=== PATIENT | male | born 1960 | race Caucasian/White ===

== ENCOUNTER 2019-02-03 18:46 | Emergency (ER) | payer OTHER ==
[~2019-02-03] VITALS: Wt 81.6 kg
--- NOTE | ~2019-02-03 | EKG ---
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
[~2019-02-03 18:46] MED LIST: AMOXICILLIN500 MG PO; CLINDAMYCIN HC300 MG PO; LISINOPRIL5 MG PO; MOTRIN800 MG PO; TRAMADOL HCL50 MG PO; VIBRAMYCIN100 MG PO
[2019-02-03 18:59] LABS: BASO # 0.1 10*3/uL (0.0-0.1); BASO % 0.6 % (0.0-1.0); EOS # 0.3 10*3/uL (0.0-0.4); EOS % 3.1 % (1.0-4.0); HEMOGLOBIN 15.4 g/dl (14.0-18.0); LYMPH # 1.7 10*3/uL (1.3-4.4); LYMPH % 18.6 % (27.0-41.0); MEAN CELL VOLUME 98.4 fl (80.0-94.0); MEAN CORPUSCULAR HGB 34.5 pg (27.0-31.0); MONO # 1.1 10*3/uL (0.1-1.0); MONO % 12.6 % (3.0-9.0); NEUT # 5.9 10*3/uL (2.3-7.9); NEUT % 64.8 % (47.0-73.0); PLATELET COUNT AUTOMATED 235 10*3/uL (130-400); RED BLOOD COUNT 4.47 10*6/uL (4.50-5.90); RED CELL DISTRI WIDTH 12.5 % (0-14.5)
[2019-02-03 19:10] LABS: ACT PARTIAL THROMBO TIME 28.2 SECONDS (20.0-32.1); INTERNATIONAL NORM RATIO 0.9 (2.0-3.5)
[2019-02-03 19:16] LABS: ALBUMIN 3.7 gm/dl (3.1-4.5); ALKALINE PHOSPHATASE 136 U/L (45-117); BUN 12 mg/dl (7-24); CHLORIDE 103 mmol/L (98-107); CREATININE 0.99 mg/dL (0.70-1.30); POTASSIUM 4.1 mmol/L (3.5-5.1); SGOT/AST 33 IU/L (3-35); SGPT/ALT 34 U/L (12-78); SODIUM 134 mmol/L (136-145); TOTAL PROTEIN 7.3 gm/dL (6.4-8.2)
[2019-02-03 19:17] LABS: TROPONIN I < 0.015 ng/ml (<0.045)
[2019-02-03] MEDS ORDERED: VIBRAMYCIN100 MG PO (20:30)
[2019-02-03] MEDS ORDERED: Motrin,Rufen800 MG PO (20:30)
== END 2019-02-03 20:45 | disposition home or self-care (01) ==
LOC: ED 18:46
PROVIDERS: Emergency Medicine
DX: J45.909 Unspecified asthma, uncomplicated (principal); R07.81 Pleurodynia; F17.200 Nicotine dependence, unspecified, uncomplicated; Z88.4 Allergy status to anesthetic agent; Z88.0 Allergy status to penicillin; Z79.899 Other long term (current) drug therapy; Z90.49 Acquired absence of other specified parts of digestive tract

== ENCOUNTER 2019-03-16 13:57 | Inpatient (IN) | payer OTHER ==
[~2019-03-16] VITALS: Ht 182.8 cm; Wt 79.4 kg
[~2019-03-16 13:57] MED LIST changes: +Motrin,Rufen800 MG PO
[2019-03-16 13:58] VITALS: BP 176/102
--- NOTE | 2019-03-16 14:14 | NUR ---
MEDS PER MEGAN HERNANDEZ
[2019-03-16 15:02] LABS: BASO % 0.1 % (0.0-1.0); EOS # 0.1 10*3/uL (0.0-0.4); EOS % 0.9 % (1.0-4.0); HEMATOCRIT 37.6 % (42.0-52.0); HEMOGLOBIN 13.4 g/dl (14.0-18.0); LYMPH # 0.7 10*3/uL (1.3-4.4); LYMPH % 9.9 % (27.0-41.0); MEAN CELL VOLUME 99.5 fl (80.0-94.0); MEAN CORPUSCULAR HGB 35.4 pg (27.0-31.0); MEAN CORPUSCULAR HGB CONC 35.6 g/dl (33.0-37.0); MEAN PLATELET VOLUME 9.2 fl (9.6-12.3); MONO # 0.6 10*3/uL (0.1-1.0); MONO % 8.7 % (3.0-9.0); NEUT # 5.5 10*3/uL (2.3-7.9); NEUT % 80.1 % (47.0-73.0); PLATELET COUNT AUTOMATED 166 10*3/uL (130-400); RED BLOOD COUNT 3.78 10*6/uL (4.50-5.90); RED CELL DISTRI WIDTH 12.4 % (0-14.5); WHITE BLOOD COUNT 6.9 10*3/uL (4.8-10.8)
[2019-03-16 15:11] LABS: ACT PARTIAL THROMBO TIME 28.6 SECONDS (20.0-32.1); INTERNATIONAL NORM RATIO 0.9 (2.0-3.5)
[2019-03-16 15:20] LABS: ALBUMIN 3.4 gm/dl (3.1-4.5); ALKALINE PHOSPHATASE 170 U/L (45-117); BUN 8 mg/dl (7-24); CHLORIDE 96 mmol/L (98-107); CREATININE 0.96 mg/dL (0.70-1.30); LIPASE 228 U/L (73-393); POTASSIUM 3.1 mmol/L (3.5-5.1); SGOT/AST 68 IU/L (3-35); SGPT/ALT 51 U/L (12-78); SODIUM 133 mmol/L (136-145); TOTAL PROTEIN 6.4 gm/dL (6.4-8.2)
[2019-03-16 15:21] LABS: TROPONIN I < 0.015 ng/ml (<0.045)
[2019-03-16] MEDS ORDERED: LISINOPRIL20 MG PO (15:51)
[2019-03-16 15:57] LABS: BILIRUBIN NEGATIVE (NEGATIVE); BLOOD NEGATIVE (NEGATIVE); CLARITY CLEAR (CLEAR); COLOR YELLOW (YELLOW); GLUCOSE NEGATIVE (NEGATIVE); KETONE NEGATIVE (NEGATIVE); LEUKO ESTERASE NEGATIVE (NEGATIVE); NITRITE NEGATIVE (NEGATIVE); PH 8.5 (5.0-9.0); UROBILINOGEN 0.2 E.U./dl (0.2-1.0)
--- NOTE | 2019-03-17 03:13 | NUR ---
REPORT TO CANDIS AVILES RN
[2019-03-17 03:46] VITALS: BP 138/71
--- NOTE | 2019-03-17 03:46 | NUR ---
PT REPORT OBTAINED AT 0300.
--- NOTE | 2019-03-17 03:47 | NUR ---
PT RESTING QUIETLY, NO DISTRESS NOTED, PT DENIES ANY CHEST PAIN OR SOB. CALL LIGHT INB REACH WILL MONITOR.
[2019-03-17 08:00] VITALS: BP 175/97
--- NOTE | 2019-03-17 08:00 | NUR ---
A 58, admitted to , under the services of DION Martinez MD with a diagnosis of DIZZINESS, HYPOKALEMIA. Chief complaint is VOMITED AND DIZZINESS YESTERDAY. Patient arrived via stretcher from ER. Monitor applied. Initial assessment completed. Vital signs taken and recorded. DION MARTINEZ MD notified of admission to the unit. Orders received. See assessment for past medical history, medications and allergies. Patient and/or family oriented to unit. [facility]. Clothing/patient valuable form completed. CLEMENCIA RIVAS
[2019-03-17 12:00] VITALS: BP 161/92
[2019-03-17] MEDS ORDERED: ALEVE220 M1 PO (14:33)
[2019-03-17 16:00] VITALS: BP 168/102
--- NOTE | 2019-03-17 16:17 | NUR ---
PT MEDICATED WITH ALEVE PO FOR C/O HEADACHE. STATES ALEVE IS WHAT HE TAKES AT HOME.
[2019-03-17 20:00] VITALS: BP 165/98; BP 168/100
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
[2019-03-18] VITALS: BP 155/106; BP 158/94; BP 172/102
--- NOTE | 2019-03-18 01:46 | NUR ---
NOTIFIED DR. HOFF OF PATIENTS BLOOD PRESSURE BEING 172/102. ORDER RECCIEVED FOR NORVASC 10MG PO NOW
[2019-03-18 04:00] VITALS: BP 152/88
[2019-03-18 07:49] LABS: BASO % 0.3 % (0.0-1.0); EOS # 0.2 10*3/uL (0.0-0.4); EOS % 3.9 % (1.0-4.0); HEMATOCRIT 43.3 % (42.0-52.0); LYMPH % 17.5 % (27.0-41.0); MEAN CORPUSCULAR HGB 35.1 pg (27.0-31.0); MEAN CORPUSCULAR HGB CONC 34.6 g/dl (33.0-37.0); MEAN PLATELET VOLUME 9.6 fl (9.6-12.3); MONO # 0.6 10*3/uL (0.1-1.0); MONO % 10.8 % (3.0-9.0); NEUT % 67.2 % (47.0-73.0); PLATELET COUNT AUTOMATED 174 10*3/uL (130-400); RED BLOOD COUNT 4.27 10*6/uL (4.50-5.90); RED CELL DISTRI WIDTH 12.5 % (0-14.5); WHITE BLOOD COUNT 5.9 10*3/uL (4.8-10.8)
[2019-03-18 07:52] LABS: MEAN CELL VOLUME 101.4 fl (80.0-94.0)
[2019-03-18 08:00] VITALS: BP 150/84
[2019-03-18] MEDS ORDERED: ZOCOR10 MG PO (08:08)
[2019-03-18] MEDS ORDERED: PROTONIX40 MG PO (08:08)
[2019-03-18 08:10] LABS: BUN 9 mg/dl (7-24); CHLORIDE 106 mmol/L (98-107); CHOLESTEROL 167 mg/dL (<200); CREATININE 0.86 mg/dL (0.70-1.30); HDL CHOLESTEROL 118 mg/dl (40-60); LDL CHOLESTEROL 38 mg/dL (9-159); TRIGLYCERIDES 53 mg/dl (<150); VLDL CHOLESTEROL 11 mg/dL (6-40)
[2019-03-18 08:14] LABS: SODIUM 137 mmol/L (136-145)
[2019-03-18 08:15] LABS: POTASSIUM 4.1 mmol/L (3.5-5.1)
--- NOTE | 2019-03-18 11:00 | NUR ---
Discharge instructions reviewed with patient/family. Patient receptive and verbalizes understanding. Follow-up care arranged. Written instructions given to patient/family. CLEMENCIA RIVAS
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
[2019-03-19 08:09] LABS: HEPATITIS B SURFACE AG Negative (Negative); HEPATITIS C VIRUS ANTIBODY <0.1 s/co (0.0-0.9)
== END 2019-03-18 11:06 | disposition home or self-care (01) | DRG 392 ==
LOC: ED 13:57 → EDHOLD 15:45 → 4E 03-17 07:08
PROVIDERS: Nurse Practitioner Family; ADMIT Internal Medicine
DX: K29.20 Alcoholic gastritis without bleeding (principal); E87.1 Hypo-osmolality and hyponatremia; K44.9 Diaphragmatic hernia without obstruction or gangrene; G40.909 Epilepsy, unspecified, not intractable, without status epilepticus; E87.6 Hypokalemia; R74.0 Nonspecific elevation of levels of transaminase and lactic acid dehydrogenase [LDH]; G89.29 Other chronic pain; I10 Essential (primary) hypertension; F17.210 Nicotine dependence, cigarettes, uncomplicated; I25.10 Atherosclerotic heart disease of native coronary artery without angina pectoris; K70.9 Alcoholic liver disease, unspecified; F10.10 Alcohol abuse, uncomplicated; Z88.0 Allergy status to penicillin; Z81.8 Family history of other mental and behavioral disorders; Z88.2 Allergy status to sulfonamides

== ENCOUNTER 2019-06-06 00:11 | Emergency (ER) | payer OTHER ==
[~2019-06-06] VITALS: Wt 81.6 kg
[~2019-06-06 00:11] MED LIST changes: +ALEVE220 M1 PO; +LISINOPRIL20 MG PO; +PROTONIX40 MG PO; +ZOCOR10 MG PO
== END 2019-06-06 01:24 | disposition home or self-care (01) ==
LOC: ED 00:11
DX: S60.022A Contusion of left index finger without damage to nail, initial encounter (principal); J45.909 Unspecified asthma, uncomplicated; F17.200 Nicotine dependence, unspecified, uncomplicated; Z88.0 Allergy status to penicillin; Z88.2 Allergy status to sulfonamides; Z88.4 Allergy status to anesthetic agent; Z79.899 Other long term (current) drug therapy; Z90.49 Acquired absence of other specified parts of digestive tract; W23.0XXA Caught, crushed, jammed, or pinched between moving objects, initial encounter; Y93.89 Activity, other specified; Y92.89 Other specified places as the place of occurrence of the external cause; Y99.8 Other external cause status

== ENCOUNTER → 2020-11-03 | Outpatient (CLI) | payer OTHER ==
[2020-11-03 09:50] LABS: BASO % 0.7 % (0.0-1.0); EOS # 0.4 10*3/uL (0.0-0.4); EOS % 6.9 % (1.0-4.0); HEMATOCRIT 43.3 % (42.0-52.0); LYMPH # 0.9 10*3/uL (1.3-4.4); LYMPH % 16.5 % (27.0-41.0); MEAN CELL VOLUME 104.8 fl (80.0-94.0); MEAN CORPUSCULAR HGB 35.6 pg (27.0-31.0); MEAN CORPUSCULAR HGB CONC 33.9 g/dl (33.0-37.0); MEAN PLATELET VOLUME 9.2 fl (9.6-12.3); MONO # 0.5 10*3/uL (0.1-1.0); MONO % 9.5 % (3.0-9.0); NEUT # 3.8 10*3/uL (2.3-7.9); PLATELET COUNT AUTOMATED 176 10*3/uL (130-400); RED BLOOD COUNT 4.13 10*6/uL (4.50-5.90); RED CELL DISTRI WIDTH 13.1 % (0-14.5); WHITE BLOOD COUNT 5.7 10*3/uL (4.8-10.8)
[2020-11-03 10:09] LABS: ALBUMIN 3.1 gm/dl (3.1-4.5); BUN 12 mg/dl (7-24); CHLORIDE 102 mmol/L (98-107); FREE T4 0.76 ng/dl (0.76-1.46); POTASSIUM 4.8 mmol/L (3.5-5.1); SODIUM 135 mmol/L (136-145)
[2020-11-03 10:17] LABS: ALKALINE PHOSPHATASE 121 U/L (45-117); CHOLESTEROL 154 mg/dL (<200); CREATININE 0.83 mg/dL (0.70-1.30); LDL CHOLESTEROL 97 mg/dL (9-159); SGOT/AST 36 IU/L (3-35); SGPT/ALT 32 U/L (12-78); TOTAL PROTEIN 7.2 gm/dL (6.4-8.2); TRIGLYCERIDES 66 mg/dl (<150)
[2020-11-03 11:45] LABS: VITAMIN D, 25-HYDROXY 15.8 ng/mL (30-100)
== END | disposition home or self-care (01) ==
LOC: LAB 08:53
PROVIDERS: ATTEND Internal Medicine
DX: R00.0 Tachycardia, unspecified (principal); M25.862 Other specified joint disorders, left knee; M25.861 Other specified joint disorders, right knee; E55.9 Vitamin D deficiency, unspecified; I10 Essential (primary) hypertension

== ENCOUNTER → 2020-11-19 | Outpatient (CLI) | payer OTHER | END | disposition home or self-care (01) | LOC: COVID19 14:04 | PROVIDERS: ATTEND Surgery | DX: Z01.812 Encounter for preprocedural laboratory examination (principal); Z20.822 Contact with and (suspected) exposure to COVID-19 ==

== ENCOUNTER → 2020-11-23 | Day surgery (SDC) | payer OTHER ==
[2020-11-19 14:37] VITALS: BP 150/83
[~2020-11-23] VITALS: Ht 231.1 cm; Wt 86.2 kg
[~2020-11-23] MED LIST changes: +COLACE100 MG PO; +PERCOCET 5-3251 EACH PO; +ZOFRAN4 MG PO
[2020-11-23 09:36] VITALS: BP 168/97
[2020-11-23 12:12] VITALS: BP 194/113
[2020-11-23 12:30] VITALS: BP 175/101
[2020-11-23 12:45] VITALS: BP 187/95
[2020-11-23 13:00] VITALS: BP 174/98
[2020-11-23 13:15] VITALS: BP 171/84
== END | disposition home or self-care (01) ==
LOC: SDC 11-19 14:00
PROVIDERS: ATTEND Surgery
DX: K40.30 Unilateral inguinal hernia, with obstruction, without gangrene, not specified as recurrent (principal); J45.909 Unspecified asthma, uncomplicated; I10 Essential (primary) hypertension; I25.10 Atherosclerotic heart disease of native coronary artery without angina pectoris; F17.210 Nicotine dependence, cigarettes, uncomplicated; Z79.899 Other long term (current) drug therapy; Z53.31 Laparoscopic surgical procedure converted to open procedure

== ENCOUNTER 2021-03-24 10:07 | Inpatient (IN) | payer OTHER ==
[~2021-03-24] VITALS: Ht 182.8 cm; Wt 95.1 kg
[2021-03-24 10:18] VITALS: BP 119/68
[2021-03-24 10:50] LABS: HEMATOCRIT 26.9 % (42.0-52.0); MEAN CELL VOLUME 111.6 fl (80.0-94.0); MEAN CORPUSCULAR HGB 37.8 pg (27.0-31.0); MEAN CORPUSCULAR HGB CONC 33.8 g/dl (33.0-37.0); MEAN PLATELET VOLUME 9.1 fl (9.6-12.3); PLATELET COUNT AUTOMATED 243 10*3/uL (130-400); RED BLOOD COUNT 2.41 10*6/uL (4.50-5.90); RED CELL DISTRI WIDTH 14.4 % (0-14.5); WHITE BLOOD COUNT 5.3 10*3/uL (4.8-10.8)
[2021-03-24 11:15] LABS: ALBUMIN 1.8 gm/dl (3.1-4.5); ALKALINE PHOSPHATASE 146 U/L (45-117); BUN 5 mg/dl (7-24); CHLORIDE 94 mmol/L (98-107); CREATININE 0.72 mg/dL (0.70-1.30); LIPASE 146 U/L (73-393); POTASSIUM 3.6 mmol/L (3.5-5.1); SGOT/AST 70 IU/L (3-35); SGPT/ALT 35 U/L (12-78); SODIUM 130 mmol/L (136-145)
[2021-03-24 11:19] LABS: ATYPICAL LYMPHS 2 % (0-0); PLATELET SUFFICIENCY NORMAL (NORMAL); TOTAL CELLS COUNTED 100 #CELLS
[2021-03-24 11:26] LABS: TROPONIN I < 0.015 ng/ml (<0.045)
[2021-03-24 17:49] LABS: THYROID STIM HORMONE (HS) 1.51 uIU/ml (0.358-4.75)
[2021-03-24 20:00] VITALS: BP 118/76
[2021-03-25] VITALS: BP 123/74
[2021-03-25 03:41] VITALS: BP 123/74
[2021-03-25 04:21] VITALS: BP 113/70
[2021-03-25 07:14] LABS: HEMATOCRIT 24.8 % (42.0-52.0); MEAN CELL VOLUME 112.7 fl (80.0-94.0); MEAN CORPUSCULAR HGB 37.3 pg (27.0-31.0); MEAN CORPUSCULAR HGB CONC 33.1 g/dl (33.0-37.0); MEAN PLATELET VOLUME 9.3 fl (9.6-12.3); PLATELET COUNT AUTOMATED 237 10*3/uL (130-400); RED CELL DISTRI WIDTH 14.6 % (0-14.5); WHITE BLOOD COUNT 4.8 10*3/uL (4.8-10.8)
[2021-03-25 07:29] LABS: ALBUMIN 1.7 gm/dl (3.1-4.5); ALKALINE PHOSPHATASE 119 U/L (45-117); BUN 4 mg/dl (7-24); CHLORIDE 97 mmol/L (98-107); POTASSIUM 3.5 mmol/L (3.5-5.1); SGOT/AST 46 IU/L (3-35); SGPT/ALT 28 U/L (12-78); SODIUM 132 mmol/L (136-145); TOTAL PROTEIN 5.5 gm/dL (6.4-8.2)
[2021-03-25 08:17] LABS: TOTAL CELLS COUNTED 100 #CELLS
[2021-03-25 08:18] LABS: PLATELET SUFFICIENCY NORMAL (NORMAL)
[2021-03-25 13:49] VITALS: BP 137/82
[2021-03-25 16:00] VITALS: BP 139/83
[2021-03-25] MEDS ORDERED: Percocet 325 MG1 TAB PO (16:27)
[2021-03-25 16:55] LABS: BILIRUBIN Negative (Negative); BLOOD Negative (Negative); CLARITY Clear (Clear); COLOR Dark Yellow (Yellow); GLUCOSE Negative (Negative); KETONE Negative (Negative); LEUKO ESTERASE Negative (Negative); NITRITE Negative (Negative); SPECIFIC GRAVITY 1.015 (1.001-1.030)
[2021-03-25 17:01] LABS: INTERNATIONAL NORM RATIO 1.1 (2.0-3.5)
[2021-03-25] MEDS ORDERED: GABAPENTIN600 MG PO (17:07)
[2021-03-25] MEDS ORDERED: NATURE'S BLEND F1 MG PO (17:07)
[2021-03-25 17:23] LABS: BACTERIA TRACE; EPITHELIAL CELLS 0-2; RBC 0-2 rbc/hpf (0-2)
[2021-03-25 20:00] VITALS: BP 145/76
[2021-03-26] VITALS (10 sets, daily range): BP systolic 123–152; BP diastolic 68–88
[2021-03-26 06:27] LABS: HEMATOCRIT 24.5 % (42.0-52.0); MEAN CELL VOLUME 112.4 fl (80.0-94.0); MEAN CORPUSCULAR HGB 37.6 pg (27.0-31.0); MEAN CORPUSCULAR HGB CONC 33.5 g/dl (33.0-37.0); MEAN PLATELET VOLUME 9.1 fl (9.6-12.3); PLATELET COUNT AUTOMATED 230 10*3/uL (130-400); RED BLOOD COUNT 2.18 10*6/uL (4.50-5.90); RED CELL DISTRI WIDTH 14.2 % (0-14.5); WHITE BLOOD COUNT 5.1 10*3/uL (4.8-10.8)
[2021-03-26 06:32] LABS: ALBUMIN 2.1 gm/dl (3.1-4.5); ALKALINE PHOSPHATASE 105 U/L (45-117); BUN 4 mg/dl (7-24); CHLORIDE 102 mmol/L (98-107); POTASSIUM 3.5 mmol/L (3.5-5.1); SGOT/AST 38 IU/L (3-35); SGPT/ALT 23 U/L (12-78); SODIUM 135 mmol/L (136-145); TOTAL PROTEIN 5.7 gm/dL (6.4-8.2); VANCOMYCIN TROUGH 16.6 ug/mL (10-20)
[2021-03-26 07:37] LABS: BASOPHILS 1 % (0-1); PLATELET SUFFICIENCY NORMAL (NORMAL); TOTAL CELLS COUNTED 100 #CELLS
[2021-03-26 10:07] LABS: CREATININE,URINE 85.1 mg/dL (Not Estab.); MICRO ALBUMIN/CRE RATIO <4 (0-29)
[2021-03-27] VITALS: BP 145/90
[2021-03-27 04:00] VITALS: BP 145/90
[2021-03-27 07:14] LABS: MEAN CELL VOLUME 112.6 fl (80.0-94.0); MEAN CORPUSCULAR HGB 36.5 pg (27.0-31.0); MEAN CORPUSCULAR HGB CONC 32.4 g/dl (33.0-37.0); MEAN PLATELET VOLUME 9.1 fl (9.6-12.3); PLATELET COUNT AUTOMATED 230 10*3/uL (130-400); RED BLOOD COUNT 2.22 10*6/uL (4.50-5.90); RED CELL DISTRI WIDTH 14.2 % (0-14.5); WHITE BLOOD COUNT 5.5 10*3/uL (4.8-10.8)
[2021-03-27 07:32] LABS: ALBUMIN 2.2 gm/dl (3.1-4.5); ALKALINE PHOSPHATASE 96 U/L (45-117); BUN 6 mg/dl (7-24); CHLORIDE 103 mmol/L (98-107); CREATININE 0.47 mg/dL (0.70-1.30); POTASSIUM 3.5 mmol/L (3.5-5.1); SGOT/AST 37 IU/L (3-35); SGPT/ALT 25 U/L (12-78); SODIUM 135 mmol/L (136-145); TOTAL PROTEIN 5.3 gm/dL (6.4-8.2)
[2021-03-27 08:00] VITALS: BP 122/69
[2021-03-27 08:34] LABS: PLATELET SUFFICIENCY NORMAL (NORMAL); TOTAL CELLS COUNTED 100 #CELLS
[2021-03-27 11:07] LABS: ACID FAST SPEC PROCESSING Tissue Grinding (.)
[2021-03-27 12:00] VITALS: BP 128/79
[2021-03-27 16:00] VITALS: BP 151/89
[2021-03-27 20:00] VITALS: BP 134/76
[2021-03-28] VITALS: BP 147/89
[2021-03-28 06:56] LABS: RETICULOCYTE % 6.17 % (0.50-2.50)
[2021-03-28 08:00] VITALS: BP 144/88
[2021-03-28 12:00] VITALS: BP 155/87
[2021-03-28 12:06] LABS: ACID FAST SPEC PROCESSING Tissue Grinding (.)
[2021-03-28 16:00] VITALS: BP 148/94
[2021-03-28 20:00] VITALS: BP 151/93
[2021-03-29] VITALS: BP 157/86
[2021-03-29 09:00] VITALS: BP 147/84
[2021-03-29 11:12] LABS: HEMATOCRIT 25.1 % (42.0-52.0); MEAN CELL VOLUME 114.1 fl (80.0-94.0); MEAN CORPUSCULAR HGB 37.3 pg (27.0-31.0); MEAN CORPUSCULAR HGB CONC 32.7 g/dl (33.0-37.0); MEAN PLATELET VOLUME 8.7 fl (9.6-12.3); PLATELET COUNT AUTOMATED 199 10*3/uL (130-400); RED CELL DISTRI WIDTH 13.9 % (0-14.5); WHITE BLOOD COUNT 5.7 10*3/uL (4.8-10.8)
[2021-03-29 11:27] LABS: ALBUMIN 3.1 gm/dl (3.1-4.5); ALKALINE PHOSPHATASE 84 U/L (45-117); BUN 6 mg/dl (7-24); CHLORIDE 102 mmol/L (98-107); CREATININE 0.73 mg/dL (0.70-1.30); POTASSIUM 3.4 mmol/L (3.5-5.1); SGOT/AST 34 IU/L (3-35); SGPT/ALT 25 U/L (12-78); SODIUM 136 mmol/L (136-145); TOTAL PROTEIN 6.5 gm/dL (6.4-8.2)
[2021-03-29 11:45] LABS: PLATELET SUFFICIENCY NORMAL (NORMAL); TOTAL CELLS COUNTED 100 #CELLS
[2021-03-29 12:00] VITALS: BP 136/85
[2021-03-29 12:06] LABS: TOTAL PROTEIN, SERUM 5.2 g/dL (6.0-8.5)
[2021-03-29 14:07] LABS: A/G RATIO 1.1 (0.7-1.7); ALBUMIN 2.7 g/dL (2.9-4.4); ALPHA-1-GLOBULIN 0.4 g/dL (0.0-0.4); ALPHA-2-GLOBULIN 0.5 g/dL (0.4-1.0); BETA GLOBULIN 0.8 g/dL (0.7-1.3); GAMMA GLOBULIN 0.9 g/dL (0.4-1.8); GLOBULIN, TOTAL 2.5 g/dL (2.2-3.9); M-SPIKE Not Observed g/dL (Not Observed); PE INTERPRETATION Comment: (.)
[2021-03-29 16:00] VITALS: BP 142/82
[2021-03-29 20:00] VITALS: BP 148/85
[2021-03-30] VITALS: BP 129/72
[2021-03-30 08:00] VITALS: BP 142/80
[2021-03-30 12:00] VITALS: BP 128/86
[2021-03-30 13:32] LABS: HEMATOCRIT 27.5 % (42.0-52.0); MEAN CELL VOLUME 114.6 fl (80.0-94.0); MEAN CORPUSCULAR HGB 37.1 pg (27.0-31.0); MEAN CORPUSCULAR HGB CONC 32.4 g/dl (33.0-37.0); MEAN PLATELET VOLUME 9.1 fl (9.6-12.3); PLATELET COUNT AUTOMATED 221 10*3/uL (130-400); RED CELL DISTRI WIDTH 13.5 % (0-14.5); WHITE BLOOD COUNT 7.1 10*3/uL (4.8-10.8)
[2021-03-30 13:55] LABS: BASOPHILS 3 % (0-1); PLATELET SUFFICIENCY NORMAL (NORMAL); TOTAL CELLS COUNTED 100 #CELLS
[2021-03-30] MEDS ORDERED: CEFUROXIME AXE500 MG PO (14:21)
[2021-03-30] MEDS ORDERED: FUROSEMIDE10 MG/1 M1 PO (14:21)
[2021-03-30] MEDS ORDERED: ALDACTONE25 MG PO (14:21)
[2021-03-30] MEDS ORDERED: LACTULOSE20 GM/30 M PO (14:21)
[2021-03-30] MEDS ORDERED: POTASSIUM CHLO20 ME4 PO (14:21)
[2021-03-30] MEDS ORDERED: LASIX40 MG PO (14:24)
== END 2021-03-30 15:25 | disposition home or self-care (01) | DRG 622 ==
LOC: ED 10:07 → EDHOLD 13:57 → 4E 13:57 → EDHOLD 03-25 09:03 → 4E 03-25 12:28
PROVIDERS: Emergency Medicine; Internal Medicine Hematology & Oncology; Internal Medicine Nephrology; Ophthalmology; Podiatrist; ADMIT Internal Medicine; ATTEND Internal Medicine
PROC: 2W1SX6Z Compression of Right Foot using Pressure Dressing (ICD-10-PCS; principal; 2021-03-26)
PROC: 0JBQ0ZZ Excision of Right Foot Subcutaneous Tissue and Fascia, Open Approach (ICD-10-PCS; 2021-03-26)
PROC: 0QBJ0ZX Excision of Right Fibula, Open Approach, Diagnostic (ICD-10-PCS; 2021-03-26)
DX: E11.69 Type 2 diabetes mellitus with other specified complication (principal); E43 Unspecified severe protein-calorie malnutrition; M86.8X7 Other osteomyelitis, ankle and foot; L03.115 Cellulitis of right lower limb; E87.1 Hypo-osmolality and hyponatremia; J98.11 Atelectasis; J90 Pleural effusion, not elsewhere classified; E11.51 Type 2 diabetes mellitus with diabetic peripheral angiopathy without gangrene; Z20.822 Contact with and (suspected) exposure to COVID-19; D64.9 Anemia, unspecified; F17.210 Nicotine dependence, cigarettes, uncomplicated; K70.31 Alcoholic cirrhosis of liver with ascites; E88.09 Other disorders of plasma-protein metabolism, not elsewhere classified; K44.9 Diaphragmatic hernia without obstruction or gangrene; E83.51 Hypocalcemia; I87.2 Venous insufficiency (chronic) (peripheral); E83.42 Hypomagnesemia; B96.20 Unspecified Escherichia coli [E. coli] as the cause of diseases classified elsewhere; E87.6 Hypokalemia; I50.9 Heart failure, unspecified; Z88.0 Allergy status to penicillin; Z88.2 Allergy status to sulfonamides; Z88.5 Allergy status to narcotic agent; Z79.1 Long term (current) use of non-steroidal anti-inflammatories (NSAID); Z79.899 Other long term (current) drug therapy; Z68.28 Body mass index [BMI] 28.0-28.9, adult

== ENCOUNTER → 2021-08-16 | Outpatient (CLI) | payer OTHER, MEDICAID ==
[~2021-08-16] MED LIST changes: +ALDACTONE25 MG PO; +CEFUROXIME AXE500 MG PO; +FUROSEMIDE10 MG/1 M1 PO; +GABAPENTIN600 MG PO; +LACTULOSE20 GM/30 M PO; +LASIX40 MG PO; +NATURE'S BLEND F1 MG PO; +POTASSIUM CHLO20 ME4 PO; +Percocet 325 MG1 TAB PO
== END | disposition home or self-care (01) ==
LOC: RAD 15:47
PROVIDERS: ATTEND Internal Medicine
DX: M25.471 Effusion, right ankle (principal)

== ENCOUNTER → 2022-04-14 | Outpatient (CLI) | payer OTHER, MEDICAID | END | disposition home or self-care (01) | LOC: US 00:16 | PROVIDERS: ATTEND Internal Medicine | DX: I73.9 Peripheral vascular disease, unspecified (principal); M25.561 Pain in right knee ==

== ENCOUNTER 2022-08-11 19:20 | Inpatient (IN) | payer OTHER, MEDICAID ==
[~2022-08-11] VITALS: Ht 182.8 cm; Wt 83.1 kg
[2022-08-11 19:30] VITALS: BP 99/80
[2022-08-11] MEDS ORDERED: COLACE100 MG PO (19:52)
[2022-08-11 20:24] LABS: BASO % 0.3 % (0.0-1.0); EOS # 0.1 10*3/uL (0.0-0.4); EOS % 0.7 % (1.0-4.0); HEMATOCRIT 40.2 % (42.0-52.0); LYMPH # 1.3 10*3/uL (1.3-4.4); LYMPH % 12.9 % (27.0-41.0); MEAN CELL VOLUME 91.6 fl (80.0-94.0); MEAN CORPUSCULAR HGB 33.3 pg (27.0-31.0); MEAN CORPUSCULAR HGB CONC 36.3 g/dl (33.0-37.0); MONO # 1.2 10*3/uL (0.1-1.0); MONO % 11.4 % (3.0-9.0); NEUT # 7.6 10*3/uL (2.3-7.9); NEUT % 74.5 % (47.0-73.0); PLATELET COUNT AUTOMATED 178 10*3/uL (130-400); RED BLOOD COUNT 4.39 10*6/uL (4.50-5.90); RED CELL DISTRI WIDTH 11.9 % (0-14.5); WHITE BLOOD COUNT 10.2 10*3/uL (4.8-10.8)
[2022-08-11 20:34] LABS: ACT PARTIAL THROMBO TIME 31.7 SECONDS (20.0-32.1)
[2022-08-11 20:50] LABS: ALKALINE PHOSPHATASE 124 U/L (46-116); BUN 22 mg/dl (9-23); CHLORIDE 98 mmol/L (98-107); CPK 685 U/L (34-171); POTASSIUM 4.3 mmol/L (3.4-5.1); SGPT/ALT 22 U/L (10-49); TOTAL PROTEIN 6.8 gm/dL (6.0-8.0)
[2022-08-11 21:02] LABS: MYOGLOBIN 1571.7 ng/ml (16-116)
[2022-08-11 21:25] VITALS: BP 129/80
[2022-08-11 22:37] LABS: BILIRUBIN Negative (Negative); BLOOD Negative (Negative); CLARITY Clear (Clear); COLOR Yellow (Yellow); GLUCOSE Negative (Negative); KETONE Trace (Negative); LEUKO ESTERASE Negative (Negative); NITRITE Negative (Negative); PH 6.5 (4.5-8.0); SPECIFIC GRAVITY 1.015 (1.001-1.030)
[2022-08-11 22:44] LABS: URINE AMPHETAMINES Negative (1000ng/ml); URINE BARBITURATES Negative (200ng/ml); URINE BENZODIAZEPINES Negative (200ng/ml); URINE CANNABINOIDS (THC) Negative (50ng/ml); URINE COCAINE Negative (300ng/ml); URINE METHADONE Negative (300ng/ml); URINE OPIATES Negative (300ng/ml); URINE PHENCYCLIDINE Negative (25ng/ml)
[2022-08-11 22:45] LABS: WBC 0-2 wbc/hpf (0-5)
[2022-08-12 02:59] VITALS: BP 137/73
[2022-08-12 05:28] VITALS: BP 158/92
[2022-08-12 06:50] LABS: BASO % 0.4 % (0.0-1.0); EOS # 0.2 10*3/uL (0.0-0.4); EOS % 2.4 % (1.0-4.0); HEMATOCRIT 42.5 % (42.0-52.0); LYMPH # 1.5 10*3/uL (1.3-4.4); LYMPH % 19.7 % (27.0-41.0); MEAN CELL VOLUME 93.2 fl (80.0-94.0); MEAN CORPUSCULAR HGB 32.7 pg (27.0-31.0); MEAN CORPUSCULAR HGB CONC 35.1 g/dl (33.0-37.0); MEAN PLATELET VOLUME 9.3 fl (9.6-12.3); MONO % 12.7 % (3.0-9.0); NEUT # 4.8 10*3/uL (2.3-7.9); NEUT % 64.5 % (47.0-73.0); PLATELET COUNT AUTOMATED 189 10*3/uL (130-400); RED BLOOD COUNT 4.56 10*6/uL (4.50-5.90); WHITE BLOOD COUNT 7.5 10*3/uL (4.8-10.8)
[2022-08-12 07:18] LABS: ALKALINE PHOSPHATASE 120 U/L (46-116); BUN 22 mg/dl (9-23); CHLORIDE 104 mmol/L (98-107); CHOLESTEROL 172 mg/dL (<200); FREE T4 1.13 ng/dl (0.89-1.76); LDL CHOLESTEROL 113 mg/dL (9-159); MYOGLOBIN 545.1 ng/ml (16-116); POTASSIUM 4.4 mmol/L (3.4-5.1); SGPT/ALT 26 U/L (10-49); THYROID STIM HORMONE (HS) 0.738 uIU/ml (0.550-4.780); TOTAL PROTEIN 7.1 gm/dL (6.0-8.0); TRIGLYCERIDES 86 mg/dl (<150)
[2022-08-12 07:19] LABS: CPK 2241 U/L (34-171)
[2022-08-12 11:35] VITALS: BP 142/98
[2022-08-12 12:00] VITALS: BP 142/98
[2022-08-12] MEDS ORDERED: GABAPENTIN800 MG PO (12:18)
[2022-08-12] MEDS ORDERED: TRAMADOL HCL50 MG PO (12:18)
[2022-08-12] MEDS ORDERED: OMEPRAZOLE40 MG PO (12:19)
[2022-08-12] MEDS ORDERED: LISINOPRIL20 MG PO (12:36)
[2022-08-12 16:00] VITALS: BP 168/106
[2022-08-12 20:00] VITALS: BP 140/91
[2022-08-13] VITALS (7 sets, daily range): BP systolic 137–192; BP diastolic 74–103
[2022-08-13 06:52] LABS: ALKALINE PHOSPHATASE 111 U/L (46-116); BUN 16 mg/dl (9-23); CHLORIDE 102 mmol/L (98-107); POTASSIUM 4.5 mmol/L (3.4-5.1); SGPT/ALT 29 U/L (10-49); TOTAL PROTEIN 6.6 gm/dL (6.0-8.0)
[2022-08-13 07:10] LABS: CPK 1010 U/L (34-171)
[2022-08-14] VITALS: BP 165/94
[2022-08-14 07:50] LABS: BASO % 0.1 % (0.0-1.0); EOS % 0.1 % (1.0-4.0); HEMATOCRIT 40.3 % (42.0-52.0); LYMPH # 0.9 10*3/uL (1.3-4.4); LYMPH % 5.7 % (27.0-41.0); MEAN CELL VOLUME 92.9 fl (80.0-94.0); MEAN CORPUSCULAR HGB 32.7 pg (27.0-31.0); MEAN CORPUSCULAR HGB CONC 35.2 g/dl (33.0-37.0); MEAN PLATELET VOLUME 9.2 fl (9.6-12.3); MONO # 0.7 10*3/uL (0.1-1.0); MONO % 4.3 % (3.0-9.0); NEUT # 14.6 10*3/uL (2.3-7.9); NEUT % 89.3 % (47.0-73.0); PLATELET COUNT AUTOMATED 189 10*3/uL (130-400); RED BLOOD COUNT 4.34 10*6/uL (4.50-5.90); RED CELL DISTRI WIDTH 11.9 % (0-14.5); WHITE BLOOD COUNT 16.3 10*3/uL (4.8-10.8)
[2022-08-14 08:00] VITALS: BP 168/94
[2022-08-14 09:02] LABS: ALKALINE PHOSPHATASE 99 U/L (46-116); BUN 14 mg/dl (9-23); CHLORIDE 103 mmol/L (98-107); POTASSIUM 4.4 mmol/L (3.4-5.1); SGPT/ALT 29 U/L (10-49); TOTAL PROTEIN 6.6 gm/dL (6.0-8.0)
[2022-08-14 12:00] VITALS: BP 178/90
[2022-08-14 16:00] VITALS: BP 190/90
[2022-08-14 17:17] VITALS: BP 164/72
[2022-08-14 20:00] VITALS: BP 187/93
[2022-08-15] VITALS: BP 183/90
[2022-08-15 06:07] LABS: ALKALINE PHOSPHATASE 102 U/L (46-116); BUN 14 mg/dl (9-23); CHLORIDE 99 mmol/L (98-107); POTASSIUM 4.3 mmol/L (3.4-5.1); SGPT/ALT 39 U/L (10-49); TOTAL PROTEIN 6.4 gm/dL (6.0-8.0)
[2022-08-15 06:35] LABS: HEMATOCRIT 38.4 % (42.0-52.0); LYMPH # 0.9 10*3/uL (1.3-4.4); LYMPH % 7.3 % (27.0-41.0); MEAN CELL VOLUME 92.8 fl (80.0-94.0); MEAN CORPUSCULAR HGB 32.6 pg (27.0-31.0); MEAN CORPUSCULAR HGB CONC 35.2 g/dl (33.0-37.0); MEAN PLATELET VOLUME 9.7 fl (9.6-12.3); MONO # 0.4 10*3/uL (0.1-1.0); MONO % 3.4 % (3.0-9.0); NEUT # 10.6 10*3/uL (2.3-7.9); NEUT % 88.7 % (47.0-73.0); PLATELET COUNT AUTOMATED 172 10*3/uL (130-400); RED BLOOD COUNT 4.14 10*6/uL (4.50-5.90); RED CELL DISTRI WIDTH 11.8 % (0-14.5); WHITE BLOOD COUNT 11.9 10*3/uL (4.8-10.8)
[2022-08-15 08:00] VITALS: BP 171/98
[2022-08-15 12:00] VITALS: BP 184/90
[2022-08-15 16:00] VITALS: BP 169/99
[2022-08-15] MEDS ORDERED: CARVEDILOL6.25 MG PO (17:22)
[2022-08-15] MEDS ORDERED: AMLODIPINE BESY10 MG PO (17:22)
[2022-08-15] MEDS ORDERED: ATORVASTATIN CA10 M1 PO (17:22)
[2022-08-15] MEDS ORDERED: PREDNISONE20 M1 PO (17:24)
[2022-08-15] MEDS ORDERED: LEVOFLOXACIN750 M2 PO (17:32)
== END 2022-08-15 20:06 | disposition home or self-care (01) | DRG 177 ==
LOC: ED 19:20 → EDHOLD 08-12 01:00 → 5E 08-12 01:00
PROVIDERS: Emergency Medicine; Internal Medicine; Internal Medicine Nephrology; ADMIT Internal Medicine; ATTEND Internal Medicine
DX: J69.0 Pneumonitis due to inhalation of food and vomit (principal); G93.41 Metabolic encephalopathy; M62.82 Rhabdomyolysis; E87.1 Hypo-osmolality and hyponatremia; K70.31 Alcoholic cirrhosis of liver with ascites; W01.0XXA Fall on same level from slipping, tripping and stumbling without subsequent striking against object, initial encounter; J43.9 Emphysema, unspecified; K44.9 Diaphragmatic hernia without obstruction or gangrene; E11.51 Type 2 diabetes mellitus with diabetic peripheral angiopathy without gangrene; E11.42 Type 2 diabetes mellitus with diabetic polyneuropathy; E11.65 Type 2 diabetes mellitus with hyperglycemia; K72.90 Hepatic failure, unspecified without coma; D64.9 Anemia, unspecified; I10 Essential (primary) hypertension; K21.9 Gastro-esophageal reflux disease without esophagitis; I27.20 Pulmonary hypertension, unspecified; G93.9 Disorder of brain, unspecified; Z88.0 Allergy status to penicillin; Z88.2 Allergy status to sulfonamides; Z79.899 Other long term (current) drug therapy; Z88.8 Allergy status to other drugs, medicaments and biological substances; Y93.89 Activity, other specified; Y92.89 Other specified places as the place of occurrence of the external cause; Y99.8 Other external cause status; Z87.891 Personal history of nicotine dependence; Z90.49 Acquired absence of other specified parts of digestive tract; Z86.73 Personal history of transient ischemic attack (TIA), and cerebral infarction without residual deficits

== ENCOUNTER → 2022-09-23 | Outpatient (CLI) | payer OTHER, MEDICAID ==
[~2022-09-23] MED LIST changes: +AMLODIPINE BESY10 MG PO; +ATORVASTATIN CA10 M1 PO; +CARVEDILOL6.25 MG PO; +GABAPENTIN800 MG PO; +LEVOFLOXACIN750 M2 PO; +OMEPRAZOLE40 MG PO; +PREDNISONE20 M1 PO
== END | disposition home or self-care (01) ==
LOC: MRI 00:45
PROVIDERS: ATTEND Podiatrist Foot & Ankle Surgery
DX: M19.071 Primary osteoarthritis, right ankle and foot (principal); M62.571 Muscle wasting and atrophy, not elsewhere classified, right ankle and foot; M77.51 Other enthesopathy of right foot and ankle

== ENCOUNTER → 2023-11-02 | Day surgery (SDC) | payer OTHER, MEDICAID ==
[~2023-11-02] VITALS: Ht 182.8 cm; Wt 83.9 kg
[~2023-11-02] MED LIST changes: +ASMANEX220 MC5 INH; +ASPIRIN ADULT L81 M2 PO; +BUPIVACAINE 0.5% 10 ML VIAL ONE; +Clindamycin Phosphate 50 ML IV ONE; +DULOXETINE HCL30 MG PO; +LISINOPRIL10 M1 PO; +Lactated Ringer's Solution 1,000 ML IV ONE; +Lactated Ringer's Solution 1,000 ML IV SCH; +Lidocaine Hydrochloride 30 ML VIAL ONE; +Midazolam Hydrochloride 2 MG/2 ML VIAL IV ONE; +PROPOFOL 200 MG/20 ML VIAL IV ONE; +VITAMIN D250 MCG PO
[2023-11-02 08:38] VITALS: BP 144/82
[2023-11-02 08:41] LABS: BUN 8 mg/dl (9-23); CHLORIDE 105 mmol/L (98-107); POTASSIUM 4.5 mmol/L (3.4-5.1)
[2023-11-02 09:39] VITALS: BP 89/49
[2023-11-02 09:54] VITALS: BP 100/64
[2023-11-02 10:08] VITALS: BP 111/75
== END ==
LOC: SDC 10-31 08:45
PROVIDERS: ATTEND Orthopaedic Surgery
DX: G56.01 Carpal tunnel syndrome, right upper limb (principal); I10 Essential (primary) hypertension; J45.909 Unspecified asthma, uncomplicated; K46.9 Unspecified abdominal hernia without obstruction or gangrene; G62.9 Polyneuropathy, unspecified; K44.9 Diaphragmatic hernia without obstruction or gangrene; I25.10 Atherosclerotic heart disease of native coronary artery without angina pectoris; J44.9 Chronic obstructive pulmonary disease, unspecified; K21.9 Gastro-esophageal reflux disease without esophagitis; K27.9 Peptic ulcer, site unspecified, unspecified as acute or chronic, without hemorrhage or perforation; F17.210 Nicotine dependence, cigarettes, uncomplicated; Z98.890 Other specified postprocedural states; Z79.899 Other long term (current) drug therapy; Z88.0 Allergy status to penicillin; Z88.2 Allergy status to sulfonamides; Z88.8 Allergy status to other drugs, medicaments and biological substances

== ENCOUNTER → 2023-12-27 | Outpatient (CLI) | payer OTHER, MEDICAID ==
[~2023-12-27] MED LIST changes: -BUPIVACAINE 0.5% 10 ML VIAL ONE; -Clindamycin Phosphate 50 ML IV ONE; -Lactated Ringer's Solution 1,000 ML IV ONE; -Lactated Ringer's Solution 1,000 ML IV SCH; -Lidocaine Hydrochloride 30 ML VIAL ONE; -Midazolam Hydrochloride 2 MG/2 ML VIAL IV ONE; -PROPOFOL 200 MG/20 ML VIAL IV ONE
== END | disposition home or self-care (01) ==
LOC: RAD 16:03
PROVIDERS: ATTEND Internal Medicine
DX: M19.042 Primary osteoarthritis, left hand (principal); M79.602 Pain in left arm

== ENCOUNTER → 2024-05-14 | Outpatient (CLI) | payer OTHER, MEDICAID | END | disposition home or self-care (01) | LOC: RAD 13:01 | PROVIDERS: ATTEND Internal Medicine | DX: M13.842 Other specified arthritis, left hand (principal); M13.841 Other specified arthritis, right hand; M25.742 Osteophyte, left hand; M25.741 Osteophyte, right hand ==

== ENCOUNTER → 2024-06-18 | Outpatient (CLI) | payer OTHER, MEDICAID ==
[2024-06-18 12:44] LABS: ALKALINE PHOSPHATASE 127 U/L (46-116); BUN 7 mg/dl (9-23); CHLORIDE 104 mmol/L (98-107); POTASSIUM 4.3 mmol/L (3.4-5.1); SGPT/ALT 20 U/L (5-49); TOTAL PROTEIN 7.1 gm/dL (6.0-8.0)
== END | disposition home or self-care (01) ==
LOC: LAB 12:00
PROVIDERS: ATTEND Internal Medicine Nephrology
DX: E87.1 Hypo-osmolality and hyponatremia (principal)

== ENCOUNTER → 2024-11-27 | Outpatient (CLI) | payer OTHER, MEDICAID | END | disposition home or self-care (01) | LOC: ORTHO 00:47 | PROVIDERS: ATTEND Orthopaedic Surgery | DX: M19.042 Primary osteoarthritis, left hand (principal); M77.8 Other enthesopathies, not elsewhere classified; M79.642 Pain in left hand ==

== ENCOUNTER → 2025-03-14 | Outpatient (CLI) | payer OTHER, MEDICAID | END | disposition home or self-care (01) | LOC: RAD 08:33 | PROVIDERS: ATTEND Internal Medicine | DX: M17.11 Unilateral primary osteoarthritis, right knee (principal); M25.561 Pain in right knee ==

== ENCOUNTER → 2025-04-17 | Day surgery (SDC) | payer OTHER, MEDICAID ==
[2025-04-16 10:08] LABS: BUN 9 mg/dl (9-23)
[~2025-04-17] VITALS: Ht 182.8 cm; Wt 87.5 kg
[~2025-04-17] MED LIST changes: +Lactated Ringer's Solution 1,000 ML IV ONE; +Lidocaine Hydrochloride 5 ML AMP ONE; +Lidocaine Hydrochloride 5 ML VIAL IV ONE; +PROPOFOL 200 MG/20 ML VIAL IV ONE
[2025-04-17 09:48] VITALS: BP 187/96
[2025-04-17 11:10] VITALS: BP 146/77
[2025-04-17 11:25] VITALS: BP 133/88
== END | disposition home or self-care (01) ==
LOC: SDC 04-14 13:15
PROVIDERS: ATTEND Orthopaedic Surgery
DX: G56.02 Carpal tunnel syndrome, left upper limb (principal); M17.11 Unilateral primary osteoarthritis, right knee; M11.20 Other chondrocalcinosis, unspecified site; I10 Essential (primary) hypertension; J44.9 Chronic obstructive pulmonary disease, unspecified; K21.9 Gastro-esophageal reflux disease without esophagitis; M79.7 Fibromyalgia; F17.210 Nicotine dependence, cigarettes, uncomplicated; F41.9 Anxiety disorder, unspecified; Z88.0 Allergy status to penicillin; Z88.1 Allergy status to other antibiotic agents; Z87.11 Personal history of peptic ulcer disease